=== PATIENT | male | born 1980 | race African-American/Black ===

== ENCOUNTER 2017-03-29 07:40 | Day surgery (SDC) | payer BC, OTHER ==
[~2017-03-29 07:40] MED LIST: Acetaminophen TAB* 325 MG PO ONE; Buffered Lidocaine 0.9% SYRIN* 5 ML/SYR SYRINGE INTRADERM ONE; Dexamethasone IV* 4 MG/ML 1 ML (4 MG) IV SLOW PU ONE; Famotidine IV* 10 MG/ML 2 ML (20 mg) IV ONE; Scopolamine 1.5 mg* PATCH TRANSDERM ONE
[2017-03-29] MEDS ORDERED: Acetaminophen TAB* 325 MG ONE ×2 (07:55→08:17)
[2017-03-29] MEDS ORDERED: Buffered Lidocaine 0.9% SYRIN* 5 ML/SYR SYRINGE ONE (07:55)
[2017-03-29] MEDS ORDERED: Dexamethasone IV* 4 MG/ML 1 ML (4 MG) ONE (07:55)
[2017-03-29] MEDS ORDERED: Famotidine IV* 10 MG/ML 2 ML (20 mg) ONE (07:55)
[2017-03-29] MEDS ORDERED: ceFAZolin 1 GM ADVAN(*) 1 GM ADDV.VIAL IVPB ONE (08:09)
[2017-03-29] MEDS ORDERED: ceFAZolin 2 GM PREMIX (*) 50 ML IVPB ONE ×2 (08:13→14:10)
[2017-03-29] MEDS ORDERED: Scopolamine 1.5 mg* PATCH ONE (08:21)
[2017-03-29] MEDS ORDERED: Propofol* 10 MG/ML 20 ML BTL IV PUSH ONE (08:57)
[2017-03-29] MEDS ORDERED: Midazolam* 1 MG/ML 2 ML VIAL (2 MG) ONE ×3 (08:57→11:39)
[2017-03-29] MEDS ORDERED: Lidocaine 2% PF * 5 ML VIAL ONE (08:57)
[2017-03-29] MEDS ORDERED: fentaNYL* 50 MCG/ML 2 ML VIAL (100 MCG VIAL) ONE ×5 (08:57→15:18)
[2017-03-29] MEDS ORDERED: EPINEPHrine AMP 1 MG/ML ONE (09:25)
[2017-03-29] MEDS ORDERED: Levalbuterol 1.25MG/0.5ML NEB ONE (09:44)
[2017-03-29] MEDS ORDERED: HYDROmorphone INJ* 1 MG/ML CARPUJECT SYRINGE ONE ×2 (10:30→11:39)
[2017-03-29] MEDS ORDERED: DiMENhydriNATE IV* 50 MG/ML VIAL IV PUSH PRN (10:34)
[2017-03-29] MEDS ORDERED: Levalbuterol 0.63MG/3ML NEB* UNIT OF USE INH PRN (10:34)
[2017-03-29] MEDS ORDERED: fentaNYL* 50 MCG/ML 2 ML VIAL (100 MCG VIAL) IV PRN (10:34)
[2017-03-29] MEDS ORDERED: HYDROmorphone INJ* 1 MG/ML CARPUJECT SYRINGE IV PRN (10:34)
[2017-03-29] MEDS ORDERED: Nalbuphine* 20 MG/ML 1 ML VIAL IV PRN (10:34)
[2017-03-29] MEDS ORDERED: EPHEDrine (Pressors)* 50 MG/ML VIAL ONE (10:52)
[2017-03-29] MEDS ORDERED: fentaNYL* 50 MCG/ML 5 ML VIAL (250 MCG VIAL) ONE (12:06)
[2017-03-29] MEDS ORDERED: oxyCODONE/Acetamin 5/325 MG* TAB ONE (15:18)
[2017-03-29] MEDS: oxyCODONE/Acetamin 5/325 MG* TAB PO PRN ×2 (15:22→15:25)
[2017-03-29 16:02] VITALS: BP 127/85
--- NOTE | 2017-03-30 08:05 | OP ---
OPERATIVE REPORT: DATE OF OPERATION: 03/29/17 - SDS. DATE OF : 84. SURGEON: Allan Georges MD. LABORER SYRUP MACHINE: FAY Pineda. A physician plumber assistant was required for the length of the procedure for instrumentation, manipulation, and retraction. ANESTHESIOLOGIST: Shanell Tay MD ANESTHESIA: General anesthesia. PRE-OP DIAGNOSES: 1. Left knee anterior cruciate ligament tear, chronic. 2. Possible left knee lateral meniscus tear. 3. Possible left knee medial meniscus tear. POST-OP DIAGNOSES: 1. Left knee anterior cruciate ligament tear, chronic. 2. Left knee lateral meniscus tear. 3. No current medial meniscus tear. OPERATIVE PROCEDURE: 1. Left knee arthroscopic ACL reconstruction with hamstring autograft. 2. Left knee arthroscopic partial lateral meniscectomy. 3. Left knee arthroscopic anterior synovectomy. IV FLUIDS: 1700 cc crystalloid. ANTIBIOTICS: Ancef 2 g IV. TOURNIQUET TIME: A total of 81 minutes up then 31 minutes down, then 121 minutes up. The tourniquet was up at 300 mmHg. COMPLICATIONS: None. SPECIMENS: None. ESTIMATED BLOOD LOSS: Minimal. IMPLANTS: Arthrex TightRope for ACL. One screw, fully threaded, 4.5 mm cortical, with washer, 44 mm. INDICATIONS FOR PROCEDURE: The patient is a 36-year-old man, finance specialist at [employer], who presents with a long history of injuries and instability of the left knee. See my history and physical. The patient's MRI demonstrated an ACL tear, full-thickness or high-grade partial thickness. His exam was consistent with a full-thickness tear. He also had some degenerative changes versus complex tear of the posterior horn of the lateral meniscus, and some signal change in the posterior horn of the medial meniscus. I signed the patient up for left knee ACL reconstruction. We decided on a hamstring autograft. Evaluation and treatment of meniscus was discussed as well. We discussed benefits, risks, and potential complications of the procedure. Risks and complications including bleeding, infection, nerve or blood vessel injury, blood clot, and knee pain, knee stiffness, ACL graft re- rupture, meniscus re-tear. DESCRIPTION OF PROCEDURE: Preoperative written consent was signed. Operative extremity was marked in the preoperative holding. Patient was taken back to the operating room, placed supine on the operating room table. General anesthesia was induced. The hair about the left knee had been shaved. I placed a bump under the left hemipelvis. The tourniquet was placed around the left proximal thigh. The left lower extremity was prepped with a ChloraPrep from foot to proximal thigh. The left lower extremity was drapped. A thigh post had been attached about the table, which remained flat. Surgical time-out was performed. Examination under anesthesia demonstrated a pivot shift, positive test as well as increased laxity with Nevin and anterior drawer testing. An Esmarch was applied and the tourniquet was elevated. An anterolateral knee arthroscopy portal was established using standard technique. Diagnostic arthroscopy was commenced. No articular cartilage damage in the patellofemoral compartment was noted. The patient's joint was noted to be capacious by me. I moved to the medial compartment, where the patient had no clear articular cartilage damage. The medial meniscus appeared blunted in size, short from central to peripheral around its entire length from anterior horn body to posterior horn, consistent with a distant past tear and no current tear was visualized. The insertion of the posterior root looked medial. I decided that I would certainly probe that aggressively that I do to work for a possible tear , acute versus chronic of the posterior root. I then moved to the intracondylar notch where there is a ligamentum mucosum anterior, but clear significant damage to the ACL. I then moved to the lateral compartment. Before I moved to the lateral compartment, I noted a bucket handle tear on the lateral meniscus that was displaced into the intercondylar notch. Not until I got the knee into the [id number]-[id number] position was I able to later dislodge that tear. The lateral compartment had no clear articular cartilage injury, but clearly had a bucket handle lateral meniscal tear with some really poor looking tissue displaced into the notch. I next returned to the medial compartment. I established an anteromedial knee arthroscopy portal under direct visualization. I entered a probe and probed the length of the meniscus. No tears. No instability. That posterior root was firmly attached. I probed it a multiple different directions and there was no root tear. I next used an arthroscopic shaver to debride some ligamentum mucosum about the anterior intercondylar notch. I then placed a probe and I probed the ACL. There was no proximal half of the ACL. Some of it scarred more medially, but the entire lateral wall was naked, empty at ACL. I next moved to the lateral compartment. Only when I moved the knee into the vknzcr-at-aide position was appropriately able to dislodge the bucket handle meniscal tear that we displaced into the intercondylar notch. I was able to move it back into the lateral compartment. At this point, I realized there was not one but two vertical tears, central, bucket handle of the lateral meniscus. The tissue of the central most tear was clearly very poor and so I cut that with an arthroscopic scissors and then I shaved out it with an arthroscopic shaver. I then noted that the second bucket handle meniscal tear also had very poor quality. I incised that and then shaved it away. I then shaved the frayed surfaces at the posterior horn body and body of the lateral meniscus. I then assessed the meniscus. Unfortunately, there was still a rim of meniscus including about the popliteal hiatus. I probed this and there were no further unstable tears to the meniscus. Happy with my partial lateral meniscectomy, I returned to the intracondylar notch where I debrided much of the ACL tendon at this point as well as the lateral wall. I next removed the instruments and pulled it from the knee. I applied a [facility] knee positioner to the operating room table. I put the knee in approximately 70 degrees of flexion. I made a longitudinal incision over the anteromedial lower leg, proximally and centered about the level from proximal to distal of the tibial tubercle. I incised the skin with a knife. I exchanged knives and used a deep knife to incise the subcutaneous tissue. I then used scissors to do spreading dissection down to the hamstring tendons. Before I get to hamstring tendons, I got to the sartorius fascia, which I incised in the directions trajectory at the hamstring tendons. I next grabbed the hamstring tendons with a long 90 degree hemostat. I placed two stitches around the distal end of either using a luggage tag stitch using Vicryl 0 suture. I next incised the end of each half off their insertion on the tibia. I next freed each up using mostly finger dissection proximally. I used scissors very little to get any connections with the gastrocnemius or elsewhere. Next, I used a closed tendon harvester and harvested the gracilis and then semitendinosus. I next moved to a back table. Unfortunately, I had the tourniquet up for sometime while working at the back table before it was put down. But eventually the tourniquet was put down. On the back table, I debrided muscle from my tendon. I cut the semitendinosus and gracilis each to approximately 200 mm long. I prepped each graft, 30 to 32 mm of each end with a whipstitch using #2 FiberWire. I used #2 FiberWire on one graft, the gracilis and #2 TigerWire on the semitendinosus graft. I next remeasured these grafts and both at once they have been sutured approximately 195 mm in length. I sized the grafts with a suture. The proximal end of the grafts fit an 8 mm tunnel and the distal 9 mm tunnel. This made be happy that these were sufficiently large, did not need allograft supplementation. I consented the patient for allograft supplementation just in case. The tendons were applied to a TightRope device. I next sutured the tendons together both proximally and distally with two stitches using a Vicryl 2.0 suture. This was to keep the tendons from shifting during entry into the knee. I next tensioned the graft on the back table with a 15 pounds of pressure and put a wet sponge over them. I next returned to the knee. I elevated the tourniquet after applying an Esmarch. I next did a notch plasty with an arthroscopic bur. With the knee in 90 degrees of flexion, I used my Awilda awl to cynthia the 1:30 or 1:45 o'clock position. I next flexed the knee to approximately 120 degrees. It should be noted that to do my notch plasty, I created a second anteromedial portal, with this accessory anteromedial portal placed just superior into the anterior horn of the medial meniscus and medial enough to be close to the medial femoral condyle. I did my notch plasty through that accessory medial portal and I also placed my peg into the rest of my work through that portal. With the knee in 120 degrees of flexion, I used a 7 mm around the back guide, intentionally, cautiously rather than a 6 mm around the back guide. I placed a pin using this device. The pin exited the skin at the mid point of the ITB or perhaps one- third of the way from the anterior to the posterior aspect of the ITB. I was happy with my tunnel position. I confirmed adequacy of posterior wall with an arthroscopic probe posterior to the pin. Next, I placed a condyle protector and my 8 mm [place] reamer and drilled a tunnel 30 to 35 mm in length. It should be noted that I thought that the pin was 45 mm in length when it violated the second cortex. I noted that. After reaming the femoral tunnel, I removed the reamer and the pin and debrided the detritus from that tunnel with an arthroscopic shaver. I visualized that tunnel both from anterolateral and anteromedial portal. We returned the knee to 90 degrees of flexion. Debrided the ACL insertion with arthroscopic shaver and vapor. I identified anterior horn lateral meniscus. I used a tibial guide, placed at 55 degrees of flexion. It took me several passes of the pin, but I obtained an excellent position perfectly central just posterior in the anterior horn of the lateral meniscus. Then, I reamed a 9-mm tunnel using a fluted reamer through my longitudinal anteromedial skin incision made earlier for hamstring harvest. Debrided detritus from that tunnel with arthroscopic shaver. Replaced my pins through the femoral tunnel and placed a passing stitch with it. I placed my graft starting with the TightRope. Flipped my button at about 45 mm as demarcated on the suture at the TightRope. Confirmed with mini C-arm that the button was directly on bone with very minimal fat between button and bone, clearly deep to the iliotibial band. Next , using a TightRope pulled the graft up into the femoral tunnel. I hold it until my tunnel distally was just at the exit of the tunnel depth. Arthroscoped the knee and demonstrated excellent position of the graft. Next, I fully extended the knee. I drilled measured at the depth and then placed it barely bicortical screw and washer, 4.5 mm in size 44 mm in length. This had a washer. I tied my sutures distally with an plumber assistant giving a posterior drawer. I then pulled even more on this and tried to advance the knot part of the way along the washer. They did not quite get distal to the washer as I had gotten my sutures so tight with the initial knot. Performed anterior drawer and Nevin and there was no laxity whatsoever. Then, I pulled my TightRope taut again proximally. No further movement of the graft as viewed arthroscopically. I next placed a knot in the white suture of my TightRope proximally and pushed the knots with an arthroscopic knot pusher. Mini C-arm images confirmed the position of that screw and washer as well as the TightRope button still being down. Irrigation of wounds. Closure of the large wound with [id number] stitches using Vicryl 0 suture about the deep subcutaneous tissue and fascia. Closure of the subcutaneous layer with buried simple stitches using Vicryl 2-0 suture. Closure of all skin incisions with nylon 4-0 suture. A running stitch of the long incision distally and [id number]-yw-[id number] stitches for the arthroscopic skin incisions. Xeroform, 4x4s, ABDs, sterile Webril. Connor bandage from foot to proximal thigh. Tourniquet was dropped. Cooling unit. Knee brace locked in extension. DISPOSITION: The patient will be discharged home when medically stable. He already has a physical therapy appointment scheduled postoperatively in the next day or two. Rehab per my protocol. Keflex x7 days postoperative. Percocet as needed for pain control. Aspirin for two weeks for DVT prophylaxis. The patient will follow up with me in 2 weeks postoperatively for a wound check and removal of stitches. [id number]/CPS #: [id number] FRANCISCA
[2017-04-01] MEDS ORDERED: Scopolomine PATCH Remove* 1 NOTE MISC PATCH OFF ONE (06:00)
--- NOTE | 2017-04-04 22:04 | RAD ---
CPT II Codes: 6045F INDICATION: ACL reconstruction surgery TECHNIQUE: Intraoperative fluoroscopy was provided during ACL surgery. FINDINGS: 7 spot films depict a medullary screw spanning the proximal tibia and a lateral surgical device along the lateral margin of the femoral condyle.. Fluoroscopy time: 77.4 seconds IMPRESSION: As above.
== END 2017-03-29 17:30 | disposition home or self-care (01) ==
LOC: OR 07:40
PROVIDERS: ATTEND Orthopaedic Surgery
DX: S83.512D Sprain of anterior cruciate ligament of left knee, subsequent encounter (principal); S83.282D Other tear of lateral meniscus, current injury, left knee, subsequent encounter; F17.210 Nicotine dependence, cigarettes, uncomplicated; R00.2 Palpitations; K21.9 Gastro-esophageal reflux disease without esophagitis; F41.0 Panic disorder [episodic paroxysmal anxiety]; X50.0XXD Overexertion from strenuous movement or load, subsequent encounter; Y92.322 Soccer field as the place of occurrence of the external cause
CPT/HCPCS: 76000; A9270-GY; C1713; C1776; J0171; J0690; J1100; J1170; J2250; J2704; J3010